=== PATIENT | female | born 1965 | race Caucasian/White ===

== ENCOUNTER 2020-10-19 08:00 | Outpatient (CLI) | payer MEDICARE ==
--- NOTE | 2020-10-19 13:34 | XRAY Report ---
PROCEDURE: Knee 3 View LT INDICATIONS: CONTUSION OF LEFT KNEE TECHNIQUE: 3 views of the left knee(s) were acquired. COMPARISON: None. FINDINGS: Bones: No fractures or dislocations. No suspicious bony lesions. Mild degenerative arthritis. Soft tissues: No joint effusion. No suspicious soft tissue calcifications. IMPRESSION: Mild degenerative arthritis. No evidence of acute bony abnormality of the left knee. Comment: If the patient continues to experience pain, consider left knee MRI. Reviewed by: Rigoberto Fulton MD on 10/19/2020 12:33 PM [facility] Approved by: Rigoberto Fulton MD on 10/19/2020 12:33 PM [facility] Station ID: [id number]
== END 2020-10-19 23:59 | disposition home or self-care (01) ==
LOC: DI.S 08:00
PROVIDERS: ATTEND Physician Assistant
DX: M17.12 Unilateral primary osteoarthritis, left knee (principal)

== ENCOUNTER 2022-03-28 08:00 | Outpatient (CLI) | payer MEDICARE ==
--- NOTE | 2022-03-28 12:49 | XRAY Report ---
PROCEDURE: Knee 3 View RT INDICATIONS: CONTUSION OF RIGHT KNEE TECHNIQUE: 3 views of the right knee(s) were acquired. COMPARISON: None. FINDINGS: Bones: No fractures or dislocations. No suspicious bony lesions. Soft tissues: No significant joint effusion. No suspicious soft tissue calcifications. IMPRESSION: No acute plain film abnormality of the right knee can be seen. If it would be helpful for clinical management decision making, please consider a dedicated, schedule d knee MRI for further evaluation (assuming that there is no contraindication). Reviewed by: Rolando Estrella MD on 03/28/2022 11:48 AM [facility] Approved by: Rolando Estrella MD on 03/28/2022 11:48 AM [facility] Station ID: [id number]
== END 2022-03-28 23:59 | disposition home or self-care (01) ==
LOC: DI.S 08:00
PROVIDERS: ATTEND Emergency Medicine
DX: S80.01XA Contusion of right knee, initial encounter (principal)